=== PATIENT | male | born 1985 | race Caucasian/White ===

== ENCOUNTER 2025-05-08 10:54 | Emergency (ER) | payer OTHER | END 2025-05-08 12:07 | disposition home or self-care (01) | LOC: CSHERS 10:54 | DX: Z76.0 Encounter for issue of repeat prescription (principal); Z00.00 Encounter for general adult medical examination without abnormal findings; T43.596A Underdosing of other antipsychotics and neuroleptics, initial encounter; Z91.148 Patient's other noncompliance with medication regimen for other reason | CPT/HCPCS: 99283 ==